=== PATIENT | male | born 1945 | race Caucasian/White ===

== ENCOUNTER 2023-09-05 07:21 | Emergency (ER) | payer MEDICARE, OTHER, SELFPAY ==
[2023-09-05 07:23] VITALS: BP 118/79
--- NOTE | 2023-09-05 08:48 | ED.GENMED ---
History of Present Illness
General
Chief Complaint: Oral/Mouth Problem
Source: patient
Exam Limitations: none
Time Seen by Provider: 09/05/23 07:28
Nursing documentation reviewed up to this point in time: agreed with
Travel History
Have you had any contact with someone who has COVID-19?: No
Do you have any symptoms of coronavirus? Fever > 100 degrees, chills, cough, shortness of breath, sore throat, loss of taste or smell, muscle aches, or headache?: No
History of Present Illness
History of Present Illness:
78-year-old male with history as documented presents to the emergency room for evaluation of dental pain. Patient was recently diagnosed with a left lower molar dental abscess. He had a root canal 2 days ago with an oral surgeon (Dr. Corbett). He
has been prescribed Augmentin and has been taking this. He says since the operation he has had extreme pain in the left lower molar. He says his oral surgeon told him to initially try to control pain with NSAIDs and Tylenol but this has not been
adequate. Unfortunately he cannot get in touch with his oral surgeon today to discuss better pain control and he says pain is very severe so he came to the emergency room to be assessed. He has not noticed any swelling. No fevers or chills.
Past History
Past History
ED Past Medical History: CAD, Psychiatric (Anxiety) and Other (BPH)
ED Past Surgical History: Other
Social History
Tobacco: Non-smoker
Alcohol: Occasional
Family History
Family History: Other (His father with [place], mother with asthma diabetes and stroke)
Review of Systems
Review of Systems
All Other Systems: ROS reviewed and negative except as documented in HPI and ROS
EENT: Reports other (Dental pain)
Phy Exam
Physical Exam
Physical Exam:
General: Awake, alert, oriented x3; no acute distress
Head: Normocephalic, atraumatic
Eyes: Conjunctiva normal
Throat: Airway intact, handling secretions, no tongue elevation; he has poor dentition; he has tenderness to percussion tooth #17 no significant intraoral swelling and no swelling of the face externally
Neck: Trachea midline, supple without meningismus
Lungs: Breathing comfortably no distress
Heart: Regular rate
Neuro: Cranial nerves grossly intact, speech fluid
Skin: no rash
Extremities: Warm and well-perfused, moving all extremities equally
Scores
Heart Failure Risk
Heart Failure Risk Score: Not Applicable
Heart Score for Chest Pain Patients
STEMI patient?: Not applicable
Withdrawal Assessment of Alcohol
Withdrawal Assessment Completed?: Not applicable
Course
Vital Signs
Initial and Last Documented VS:
Initial Vital Signs
Temp Pulse Resp BP Pulse Ox
36.7 C 79 16 118/79 98
09/05/23 07:23 09/05/23 07:23 09/05/23 07:23 09/05/23 07:23 09/05/23 07:23
Last Documented Vital Signs
Temp Pulse Resp BP Pulse Ox
36.7 C 79 16 118/79 98
09/05/23 07:23 09/05/23 07:23 09/05/23 07:23 09/05/23 07:23 09/05/23 07:23
Procedures
Dentalgia
Dental Block: In. Paula. Block
Tooth Number: 17
Abcess drained?: No
Pt tolerated procedure well w/ no immediate adverse effects?: Yes
Other: 0.5% bupivacaine/1% lidocaine mixture administered
MDM/Problems Addressed
Differential Diagnosis Includes:
Dental abscess/postoperative dental pain
MDM/Problems Addressed:
78-year-old male presents for evaluation of dental pain after recent root canal. He is on antibiotics for dental abscess. He has been using [id number] NSAIDs and Tylenol without adequate pain control, was unable to reach his surgeon today to
discuss further pain control options and so he came to the emergency room. Physical exam as above�he has no swelling but does have significant sinus to percussion of tooth #17 which is the tooth which underwent root canal. Performed inferior
alveolar nerve block with complete resolution of pain using mixture of lidocaine and bupivacaine. Will prescribe short course of opiates for breakthrough pain while waiting for his follow-up appointment with oral surgery. He will continue to take
Augmentin as prescribed. I did review PDMP he does have multiple descriptions for benzodiazepines which he takes chronically�I spoke with him about holding these medications over the next few days if he is taking oxycodone. He indicated
understanding (patient is a retired physician). Spoke about return precautions all questions answered.
*Pulse Oximetry
Patient hypoxic: no
*Critical Care Note
Total Time (30-74mins, 75-104mins- exclusive of procedures): Not Applicable
Data Reviewed
Source: patient
ED Attending Note
-
Portions of this chart may have been created with voice recognition software.� Occasional wrong word or��sound alike� substitutions may have occurred due to the inherent limitations of voice recognition software.
Discharge Plan
Departure
Patient Disposition: Home (Routine Discharge)
Date of Disposition: 09/05/23
Time of Disposition: 08:48
Patient with high blood pressure during this ER visit?: No
Discharge Problem:
Pain, dental
Instructions: Dental Pain (DC)
Prescriptions:
New
oxycodone 5 mg tablet
5 mg PO TID PRN (Reason: Pain) Qty: 10 0RF
No Action
zolpidem 10 MG tablet
10 mg PO HS
Rx Instructions:
04/06/2023, patient filled this medication on 03/14/2023 for 30 tablets according to PDMP.
tamsulosin 0.4 MG capsule
0.8 mg PO HS
loratadine 10 MG tablet
10 mg PO HS
sildenafil 100 mg Tablet
100 mg PO DAILY PRN (Reason: erectile dysfunction)
diazepam 10 mg Tablet
10 mg PO BID
Rx Instructions:
04/06/2023, patient filled this medication on 03/15/2023 for 60 tablets according to PDMP.
Medical Marijuana
0.5 gummy PO HSPRN PRN (Reason: sleep)
Patient Comments:
04/06/2023, patient states that they take half of one gummy HSPRN.
acetaminophen [Tylenol Extra Strength] 500 mg Tablet
1,000 mg PO Q8H Qty: 0 0RF
Referrals:
Rosamaria Marino MD [Family Provider] - Call in 1-3 days for appt
Activity Restrictions/Additional Instructions:
You should follow-up with your oral surgeon as scheduled. You should take your antibiotic as prescribed. YOU MUST NOT MIX YOUR PRESCRIBED BENZODIAZEPINES (VALIUM) WITH OXYCODONE; IF YOU NEED TO TAKE OXYCODONE, YOU SHOULD HOLD YOUR VALIUM.
Thank you for visiting the Emergency Department at [facility].
1. Please schedule a follow up appointment as directed. Call first thing tomorrow morning to make an appointment.
2. If indicated, please take your medications as instructed and indicated on discharge paperwork.
3. If any of your symptoms do not improve, or persist, or become more severe within 6-12 hours, please return to the emergency department for further care.
4. Please return to the emergency department if you develop a headache, neck pain/stiffness, fever greater than 100.4F, chest pain, shortness of breath, persistent nausea, vomiting, slurred speech, difficulty walking, numbness/tingling, weakness,
signs of infection or any other symptoms that are worrisome to you.
Please call [phone] if you have any questions.
Interventions
Interventions:
*ED COVID-19 Vaccine History Last Done: 09/05/23 07:23
== END 2023-09-05 09:27 | disposition home or self-care (01) ==
LOC: EMR 07:21
PROVIDERS: EMERGENCY PHYSICIAN Emergency Medicine; FAMILY PHYSICIAN Family Medicine
DX: K08.89 Other specified disorders of teeth and supporting structures (principal); I25.10 Atherosclerotic heart disease of native coronary artery without angina pectoris; F41.9 Anxiety disorder, unspecified; N40.0 Benign prostatic hyperplasia without lower urinary tract symptoms; Z82.3 Family history of stroke; Z82.49 Family history of ischemic heart disease and other diseases of the circulatory system; Z83.3 Family history of diabetes mellitus
CPT/HCPCS: 99282

== ENCOUNTER → 2024-05-31 15:57 | Outpatient (REF) | payer MEDICARE, OTHER, SELFPAY ==
[2024-05-31 17:04] LABS: % Eosinophils 3.6 % (0-6); % Lymphocytes 37.6 % (20.5-51.1); % Monocytes 7.2 % (1.7-9.3); % Neutrophils 50.6 % (42.2-75.2); Absolute Basophils 0.1 10^3/uL (0-0.2); Absolute Eosinophils 0.2 10^3/uL (0-0.7); Absolute Lymphocytes 2.2 10^3/uL (1.2-3.4); Absolute Monocytes 0.4 10^3/uL (0.1-0.6); Hematocrit 41.8 % (39.0-52.0); Hemoglobin 15.3 g/dL (13.0-18.0); Mean Corp Hgb Conc. 36.6 g/dL (33.0-37.0); Mean Corpuscular Hgb 35.1 pg (27.0-31.0); Mean Corpuscular Volume 95.9 fL (80.0-94.0); Mean Platelet Volume 9.5 fL (7.4-10.4); Nucleated Red Blood Cells % 0 % (-); Platelet Count 314 10^3/uL (130-400); Red Blood Cell Count 4.36 10^6/uL (4.70-6.10); Red Cell Dist. Width 11.5 % (11.5-14.5); White Blood Cell Count 5.9 10^3/uL (4.8-10.8)
[2024-05-31 17:20] LABS: Blood Urea Nitrogen 16 mg/dl (9-20); Glucose 114 mg/dl (70-99)
[2024-05-31 17:21] LABS: ALT (SGPT) 27 U/L (0-50); AST (SGOT) 26 U/L (17-59); Albumin 4.4 g/dl (3.5-5.0); Alkaline Phosphatase 78 U/L (38-126); Calcium 9.2 mg/dl (8.4-10.2); Carbon Dioxide 27 mmol/L (22-30); Chloride 104 mmol/L (98-107); HDL Cholesterol 68 mg/dl; LDL Cholesterol, Calculated 97 mg/dl; Potassium 4.9 mmol/L (3.5-5.1); Sodium 141 mmol/L (135-145); Total Bilirubin 0.4 mg/dl (0.2-1.3); Total Cholesterol 209 mg/dl (50-199); Total Protein 7.2 g/dl (6.3-8.2); Triglyceride 222 mg/dl (10-149); Very Low Density Lipoprotein 44 mg/dl (0-30); eGFR > 60.00
[2024-05-31 17:59] LABS: PSA, Total - Screen 1.51 ng/ml (0.0-4.0); TSH Reflex To Free T4 0.88 uIU/ml (0.47-4.68)
[2024-06-01 16:42] LABS: Glycohemoglobin (HgbA1c) 5.3 % (4.0-5.6)
== END ==
LOC: REG 15:57
PROVIDERS: ATTENDING PHYSICIAN Family Medicine; REFERRING PHYSICIAN Specialist
DX: N40.0 Benign prostatic hyperplasia without lower urinary tract symptoms (principal); I25.10 Atherosclerotic heart disease of native coronary artery without angina pectoris; E78.5 Hyperlipidemia, unspecified; R73.9 Hyperglycemia, unspecified; R68.82 Decreased libido; Z12.5 Encounter for screening for malignant neoplasm of prostate
CPT/HCPCS: 80053; 80061; 83036; 84403; 84443; 85025; G0103

== ENCOUNTER 2024-08-15 16:40 | Emergency (ER) | payer MEDICARE, OTHER, SELFPAY ==
[2024-08-15 17:04] VITALS: BP 106/70
--- NOTE | 2024-08-15 17:07 | ED.GENMED ---
ED Provider Triage
-
Patient seen by provider in Triage?: Seen in Triage
Attestation: A medical screening examination has been initiated by a qualified medical provider. Based on the assessment performed at this time, it has been determined that an emergent medical condition may exist and the patient has been informed
that further medical evaluation and possible additional diagnostic testing may be needed.
HPI: 79-year-old male history of paroxysmal A-fib coronary artery disease not on blood thinners presents with onset of chest pain about an hour and a half prior to arrival. There was persistent pain then resolved on its own. Since then he is has
not had any pain. He denies shortness of breath or pleuritic component to the pain. EKG shows sinus rhythm. Will start with troponin and basic labs and chest x-ray
GENERAL: Alert , in no apparent distress
EYE: No visual abnormalities.
NECK: Trachea midline
ENT: No visible abnormalities.
LUNGS: No acute respiratory distress
NEUROLOGICAL: Alert and oriented
SKIN: Skin intact. No visible changes.
MUSCULOSKELETAL: Moving extremities normally
PSYCH: Normal and appropriate interaction.
This is a medical evaluation conducted in person to initiate diagnostic evaluation and provide initial therapeutics. Please see further documentation by the treating clinician.
History of Present Illness
General
Chief Complaint: Chest Pain
Past History
Past History
ED Past Medical History: CAD, Psychiatric (Anxiety) and Other (BPH)
ED Past Surgical History: Other
Social History
Tobacco: Non-smoker
Alcohol: Occasional
Family History
Family History: Other (His father with [place], mother with asthma diabetes and stroke)
Course
Orders/Labs/Results
Orders:
Orders
08/15/24 16:43
EKG [Electrocardiogram (*1)] Urgent
Reason for Study: Chest Pain
EKG- Treatment ONCE
08/15/24 17:07
CR Chest - 2 Views Urgent
Comment:
Reason For Exam: chest pain
08/15/24 17:32
Complete Blood Count/With Diff Urgent
Comprehensive Metabolic Panel Urgent
Troponin I Urgent
Abnormal Lab Results
08/15/24
17:32
MCV 94.9 H fL
(80.0-94.0)
MCH 33.7 H pg
(27.0-31.0)
Potassium 5.2 H mmol/L
(3.5-5.1)
BUN 22 H mg/dl
(9-20)
08/15/24 17:32
08/15/24 17:32
Vital Signs
Initial and Last Documented VS:
Initial Vital Signs
Temp Pulse Resp BP Pulse Ox
98.6 F 66 16 106/70 98
08/15/24 17:04 08/15/24 17:04 08/15/24 17:04 08/15/24 17:04 08/15/24 17:04
Last Documented Vital Signs
Temp Pulse Resp BP Pulse Ox
98.6 F 66 16 106/70 98
08/15/24 17:04 08/15/24 17:04 08/15/24 17:04 08/15/24 17:04 08/15/24 17:04
Update Note
Update Note:
Called back to waiting room. Patient no longer wants to wait any longer. He is feeling better. He does have history of coronary artery disease initial troponin was undetectable. He has no further pain. He wishes to leave. Explained that a
repeat troponin could be helpful to detect any other episodes of coronary artery disease however he does not want to stay. Will refer him back to his telephone advice nurse.
ED Attending Note
-
Portions of this chart may have been created with voice recognition software.� Occasional wrong word or��sound alike� substitutions may have occurred due to the inherent limitations of voice recognition software.
Discharge Plan
Departure
Patient Disposition: Home (Routine Discharge)
Date of Disposition: 08/15/24
Time of Disposition: 18:27
Patient with high blood pressure during this ER visit?: No
Discharge Problem:
Chest pain
Instructions: Chest Pain DCA Follow Up
Prescriptions:
No Action
zolpidem 10 MG tablet
10 mg PO HS
Rx Instructions:
04/06/2023, patient filled this medication on 03/14/2023 for 30 tablets according to PDMP.
tamsulosin 0.4 MG capsule
0.8 mg PO HS
loratadine 10 MG tablet
10 mg PO HS
sildenafil 100 mg Tablet
100 mg PO DAILY PRN (Reason: erectile dysfunction)
diazepam 10 mg Tablet
10 mg PO BID
Rx Instructions:
04/06/2023, patient filled this medication on 03/15/2023 for 60 tablets according to PDMP.
Medical Marijuana
0.5 gummy PO HSPRN PRN (Reason: sleep)
Patient Comments:
04/06/2023, patient states that they take half of one gummy HSPRN.
acetaminophen [Tylenol Extra Strength] 500 mg Tablet
1,000 mg PO Q8H Qty: 0 0RF
oxycodone 5 mg tablet
5 mg PO TID PRN (Reason: Pain) Qty: 10 0RF
Activity Restrictions/Additional Instructions:
As discussed, your workup could be incomplete today however you wish to leave. Please return here for any worsening symptoms follow-up with your telephone advice nurse otherwise
Interventions
Interventions:
*Risk Screen - Suicide Last Done: 08/15/24 17:04
*General Assessment Last Done: 08/15/24 17:04
*Neglect/Abuse Screening Last Done: 08/15/24 17:04
*ED COVID-19 Vaccine History Last Done: 08/15/24 17:04
Discharge Date and Time
Print Language: CANADIAN
[2024-08-15 17:41] LABS: % Basophils 0.8 % (0-2); % Eosinophils 4.2 % (0-6); % Immature Granulocytes 0.1 % (0-0.5); % Lymphocytes 28.1 % (20.5-51.1); % Monocytes 7.5 % (1.7-9.3); % Neutrophils 59.3 % (42.2-75.2); Absolute Basophils 0.1 10^3/uL (0-0.2); Absolute Eosinophils 0.3 10^3/uL (0-0.7); Absolute Lymphocytes 2.1 10^3/uL (1.2-3.4); Absolute Monocytes 0.6 10^3/uL (0.1-0.6); Absolute Neutrophils 4.3 10^3/uL (1.4-6.5); Hematocrit 44.8 % (39.0-52.0); Hemoglobin 15.9 g/dL (13.0-18.0); Mean Corp Hgb Conc. 35.5 g/dL (33.0-37.0); Mean Corpuscular Hgb 33.7 pg (27.0-31.0); Mean Corpuscular Volume 94.9 fL (80.0-94.0); Mean Platelet Volume 8.8 fL (7.4-10.4); Nucleated Red Blood Cells % 0 % (-); Platelet Count 323 10^3/uL (130-400); Red Blood Cell Count 4.72 10^6/uL (4.70-6.10); Red Cell Dist. Width 12.2 % (11.5-14.5); White Blood Cell Count 7.3 10^3/uL (4.8-10.8)
[2024-08-15 17:56] LABS: ALT (SGPT) 27 U/L (0-50); AST (SGOT) 29 U/L (17-59); Albumin 4.7 g/dl (3.5-5.0); Alkaline Phosphatase 86 U/L (38-126); Blood Urea Nitrogen 22 mg/dl (9-20); Calcium 9.6 mg/dl (8.4-10.2); Carbon Dioxide 26 mmol/L (22-30); Chloride 98 mmol/L (98-107); Glucose 95 mg/dl (70-99); Potassium 5.2 mmol/L (3.5-5.1); Sodium 135 mmol/L (135-145); Total Bilirubin 0.8 mg/dl (0.2-1.3); Total Protein 7.5 g/dl (6.3-8.2); eGFR > 60.00
[2024-08-15 18:04] LABS: Troponin I < 0.012 ng/ml
== END 2024-08-15 20:08 | disposition home or self-care (01) ==
LOC: EMR 16:40
PROVIDERS: Physician Assistant; EMERGENCY PHYSICIAN Emergency Medicine
DX: R07.9 Chest pain, unspecified (principal); I25.10 Atherosclerotic heart disease of native coronary artery without angina pectoris; I48.0 Paroxysmal atrial fibrillation
CPT/HCPCS: 99284; 80053; 84484; 85025; 93005

== ENCOUNTER 2024-11-22 09:04 | Day surgery (SDC) | payer MEDICARE, OTHER, SELFPAY ==
[2024-11-22 09:03] VITALS: BMI 23.4
[2024-11-22 09:09] VITALS: BMI 23.4
[2024-11-22 09:10] VITALS: BP 119/74
[2024-11-22 09:50] VITALS: BP 108/75
[2024-11-22 10:00] VITALS: BP 115/72
[2024-11-22 10:15] VITALS: BP 113/76
== END 2024-11-22 10:30 | disposition home or self-care (01) ==
LOC: SDS 09:04
PROVIDERS: ATTENDING PHYSICIAN Specialist
DX: R12 Heartburn (principal); K22.89 Other specified disease of esophagus
CPT/HCPCS: 43239; 88305

== ENCOUNTER 2025-06-14 06:26 | Day surgery (SDC) | payer MEDICARE, OTHER, SELFPAY | END 2025-06-14 13:40 | disposition home or self-care (01) | LOC: GI 06:26 | PROVIDERS: ATTENDING PHYSICIAN Specialist | DX: Z12.11 Encounter for screening for malignant neoplasm of colon (principal); K59.00 Constipation, unspecified; K57.30 Diverticulosis of large intestine without perforation or abscess without bleeding; N40.0 Benign prostatic hyperplasia without lower urinary tract symptoms; D12.5 Benign neoplasm of sigmoid colon; D12.3 Benign neoplasm of transverse colon | CPT/HCPCS: 45385; 88305 ==

== ENCOUNTER → 2025-06-23 11:57 | Outpatient (REF) | payer MEDICARE, OTHER, SELFPAY ==
[2025-06-23 12:43] LABS: Hematocrit 43.4 % (39.0-52.0); Hemoglobin 15.0 g/dL (13.0-18.0); Mean Corp Hgb Conc. 34.6 g/dL (33.0-37.0); Mean Corpuscular Volume 97.1 fL (80.0-94.0); Nucleated Red Blood Cells % 0 % (-); Platelet Count 358 10^3/uL (130-400); Red Cell Dist. Width 12.5 % (11.5-14.5)
[2025-06-23 13:10] LABS: ALT (SGPT) 35 U/L (0-50); AST (SGOT) 26 U/L (17-59); Albumin 4.3 g/dl (3.5-5.0); Alkaline Phosphatase 81 U/L (38-126); Blood Urea Nitrogen 17 mg/dl (9-20); Calcium 9.5 mg/dl (8.4-10.2); Carbon Dioxide 29 mmol/L (22-30); Chloride 101 mmol/L (98-107); Glucose 110 mg/dl (70-99); HDL Cholesterol 65 mg/dl; LDL Cholesterol, Calculated 120 mg/dl; Potassium 4.9 mmol/L (3.5-5.1); Sodium 137 mmol/L (135-145); Total Protein 7.4 g/dl (6.3-8.2); Very Low Density Lipoprotein 31 mg/dl (0-30); eGFR > 60.00
[2025-06-23 13:42] LABS: Glycohemoglobin (HgbA1c) 5.2 % (4.0-5.9)
== END ==
LOC: REG 11:57
PROVIDERS: ATTENDING PHYSICIAN Family Medicine; OTHER PHYSICIAN Specialist
DX: K21.9 Gastro-esophageal reflux disease without esophagitis (principal); G47.10 Hypersomnia, unspecified; E78.5 Hyperlipidemia, unspecified; E16.2 Hypoglycemia, unspecified; R79.89 Other specified abnormal findings of blood chemistry; R68.82 Decreased libido
CPT/HCPCS: 36415; 80053; 80061; 83036; 84403; 84443; 85025